=== PATIENT | female | born 1995 | race African-American/Black ===

== ENCOUNTER 2021-05-24 08:03 | Outpatient (CLI) | payer OTHER | END 2021-05-24 19:27 | disposition home or self-care (01) | LOC: US 08:03 | PROVIDERS: ATTEND Nurse Practitioner Family | DX: N92.1 Excessive and frequent menstruation with irregular cycle (principal) ==

== ENCOUNTER 2021-09-17 15:15 | Outpatient (CLI) | payer OTHER | END 2021-09-17 19:08 | disposition home or self-care (01) | LOC: RAD 15:15 | PROVIDERS: ATTEND Nurse Practitioner Family | DX: M54.2 Cervicalgia (principal); M54.6 Pain in thoracic spine ==

== ENCOUNTER 2023-04-08 10:14 | Outpatient (CLI) | payer OTHER | END 2023-04-08 19:14 | disposition home or self-care (01) | LOC: US 10:14 | PROVIDERS: ATTEND Nurse Practitioner Family | DX: R39.14 Feeling of incomplete bladder emptying (principal) ==